=== PATIENT | female | born 1960 | race Caucasian/White ===

== ENCOUNTER 2017-01-07 12:42 | Outpatient (CLI) | payer OTHER ==
--- NOTE | 2017-01-11 08:19 | Mammography Report ---
DIGITAL SCREENING MAMMOGRAM: 01/07/2017 CLINICAL INDICATION: A 56-year-old for screening. COMPARISON: 12/2015, 12/2014, 10/2013, 10/2012, 09/2011, 01/2010, 11/2007 TECHNIQUE: Routine CC and MLO projections were obtained of the breasts. FINDINGS: The breasts again demonstrate scattered fibroglandular densities bilaterally. The previou sly noted cyst in the left inner breast is unchanged. No suspicious masses, clustered microcalcifica tions, or regions of architectural distortion are identified. IMPRESSION: BENIGN FINDINGS. RECOMMENDATION: Routine annual screening unless otherwise clinically indicated. BIRADS CATEGORY 2 - BENIGN FINDINGS. STANDARD QUALIFYING STATEMENTS 1. This examination was reviewed with the aid of Computer-Aided Detection (CAD). 2. A negative or benign imaging report should not delay biopsy if clinically suspicious findings are present. Consider surgical consultation if warranted. More than 5% of cancers are not identified by i maging. 3. Dense breasts may obscure an underlying neoplasm. JOB #: [id number] EXT JOB #:[id number]
== END 2017-01-07 12:43 | disposition home or self-care (01) ==
LOC: DI 12:42
PROVIDERS: ATTEND Family Medicine
DX: Z12.31 Encounter for screening mammogram for malignant neoplasm of breast (principal)
CPT/HCPCS: 77067

== ENCOUNTER 2017-05-14 12:25 | Emergency (ER) | payer OTHER ==
[2017-05-14 12:30] VITALS: BP 133/66
--- NOTE | 2017-05-14 13:13 | ED Physician Documentation ---
PD HPI HEENT - Stated complaint Stated Complaint: R TOOTH PX/SWOLLEN - Chief complaint Chief Complaint: Heent - History obtained from History obtained from: Patient - History of Present Illness Timing - duration: Days (several days of pain right upper tooth. Seen by dentist couple days ago without particular finding. Since then has had redness and swelling of gum.) Timing - details: Gradual onset, Still present Location: Tooth Associated symptoms: Facial swelling (mild right cheek today). No: Fever, Congestion, Rhinorrhea, Swollen nodes Similar symptoms before: Has not had sx before Recently seen: Clinic (dentist 2 days ago) Review of Systems Constitutional: denies: Fever, Chills Nose: denies: Rhinorrhea / runny nose, Congestion Throat: denies: Sore throat Respiratory: denies: Cough Skin: denies: Rash, Lesions PD PAST MEDICAL HISTORY - Past Medical History Past Medical History: No Other Past Medical History: Pre Diabetic - Past Surgical History Past Surgical History: Yes /[facility]: Tubal ligation - Present Medications Home Medications: Ambulatory Orders Medication Instructions Recorded Confirmed Chlorhexidine Gluconate [Peridex] 5 ml MM BID #118 ml 05/14/17 Clindamycin [Cleocin] 150 mg PO QID #24 capsule 05/14/17 HYDROcod/ACETAM 5/325 [[place] 5/325] 1 tab PO Q6H PRN #10 tablet 05/14/17 metFORMIN [Glucophage] 500 mg PO BID 05/14/17 05/14/17 - Allergies Allergies/Adverse Reactions: Allergies Allergy/AdvReac Type Severity Reaction Status Date / Time No Known Drug Allergies Allergy Verified 05/14/17 12:30 - Social History Does the pt smoke?: No Smoking Status: Never smoker Does the pt drink ETOH?: Yes ETOH Use: Wine, Beer, Liquor Does the pt have substance abuse?: No - Immunizations Immunizations are current?: Yes - POLST Patient has POLST: No PD ED PE NORMAL - Vitals Vital signs reviewed: Yes - General General: Alert and oriented X 3, No acute distress, Well developed/nourished - HEENT HEENT: No: Dentition benign (gum redness and swelling right upper. No fluctuance. No facial cellulitis. ) - Neck Neck: Supple, no meningeal sign, No adenopathy - Cardiac Cardiac: RRR, No murmur - Respiratory Respiratory: Clear bilaterally - Derm Derm: Normal color, Warm and dry, No rash Results - Vitals Vitals: Oxygen O2 Source Room air PD MEDICAL DECISION MAKING - ED course Complexity details: considered differential (does have gum swelling and tenderness, so appears infection. ), d/w patient Departure - Departure Disposition: 01 Home, Self Care Clinical Impression: Dental infection Condition: Stable Record reviewed to determine appropriate education?: Yes Instructions: ED Abscess Dental Follow-Up: Hu Garza MD [Primary Care Provider] - Prescriptions: Chlorhexidine Gluconate [Peridex] 5 ml MM BID #118 ml Clindamycin [Cleocin] 150 mg PO QID #24 capsule HYDROcod/ACETAM 5/325 [[place] 5/325] 1 tab PO Q6H PRN #10 tablet PRN Reason: Pain Comments: Drink lots of fluids. Antiseptic rinse of chlorhexidine orally 3 or 4 times a day. Clindamycin antibiotic as directed for the infection. Tylenol or ibuprofen if needed for pain. Add hydrocodone if needed short-term. Follow-up with the dentist if not improved over the next few days. Discharge Date/Time: 05/14/17 14:06
[2017-05-14] MEDS ORDERED: HYDROcod/ACETAM 5/325 MG TABLET PO STA (13:28)
[2017-05-14] MEDS ORDERED: CLINDAMYCIN 150 MG CAPSULE PO STA (13:28)
[2017-05-14] MEDS ORDERED: CLINDAMYCIN 150 MG CAPSULE PO ONE (13:38)
[2017-05-14] MEDS ORDERED: HYDROcod/ACETAM 5/325 MG TABLET ONE (13:38)
== END 2017-05-14 14:06 | disposition home or self-care (01) ==
LOC: ED 12:25
DX: K04.7 Periapical abscess without sinus (principal)
CPT/HCPCS: 99283; A9270